=== PATIENT | female | born 1950 | race Caucasian/White ===

== ENCOUNTER 2017-03-25 19:46 | Inpatient (IN) | payer MEDICARE, MEDICAID ==
[~2017-03-25] VITALS: Ht 144.8 cm; Wt 59.0 kg
[~2017-03-25 19:46] MED LIST: HYDROCHLOROTH12.5 M2 ORAL; LISINOPRIL10 MG ORAL; XARELTO10 MG ORAL
[2017-03-25 21:32] LABS: APPEARANCE,URINE CLEAR; KETONES,URINE NEGATIVE (NEGATIVE); LEUKOCYTE ESTERASE ,URINE 1+ (NEGATIVE); NITRITE,URINE NEGATIVE (NEGATIVE); PH,URINE 7 (4.5-8.0); PROTEIN,URINE NEGATIVE (NEGATIVE); UROBILINOGEN,URINE NORMAL MG/DL (0.0-1.0)
[2017-03-25 21:35] LABS: BASOPHILS % (AUTO) 1.2 % (0.0-2.0); EOSINOPHILS % (AUTO) 2.7 % (0.0-3.0); LYMPHOCYTES % (AUTO) 25.8 % (20.0-45.0); MEAN CORPUSCULAR HEMOGLOBIN 29.1 PG (27.0-31.0); MEAN CORPUSCULAR HGB CONC 32.9 G/DL (32.0-36.0); MEAN CORPUSCULAR VOLUME 89 FL (80-99); MEAN PLATELET VOLUME 6.6 FL (6.5-10.1); MONOCYTES % (AUTO) 7.4 % (1.0-10.0); NEUTROPHILS % (AUTO) 62.9 % (45.0-75.0); PLATELET COUNT 251 K/UL (150-450); RED BLOOD COUNT 4.47 M/UL (4.20-5.40); RED CELL DISTRIBUTION WIDTH 11.5 % (11.6-14.8); WHITE BLOOD COUNT 9.7 K/UL (4.8-10.8)
[2017-03-25 21:56] LABS: INR 1.1 (0.9-1.1); PROTHROMBIN TIME 11.4 SEC (9.30-11.50)
[2017-03-25] MEDS ORDERED: Lidocaine 2% Visc 15ml soln ORAL ONE (22:00)
[2017-03-25] MEDS ORDERED: Morphine Sulfate 2mg/ml Inj IVP ONE (22:00)
[2017-03-25 22:08] LABS: AMORPHOUS SEDIMENT,UR FEW /LPF; BACTERIA,URINE FEW /HPF; RBC,URINE 0-2 /HPF (0 - 2); SQUAMOUS EPITHELIAL CELL,UR FEW /LPF (NONE/OCC)
[2017-03-25 22:09] LABS: ALANINE AMINOTRANSFERASE 17 U/L (12-78); ALBUMIN/GLOBULIN RATIO 1.1 (1.0-2.7); ANION GAP 9 mmol/L (5-15); ASPARTATE AMINO TRANSFERASE 16 U/L (15-37); CALCIUM 10.1 MG/DL (8.5-10.1); CARBON DIOXIDE 30 MMOL/L (21-32); CHLORIDE 107 MMOL/L (98-107); CREATININE 0.8 MG/DL (0.55-1.30); GLOMERULAR FILTRATION RATE > 60 mL/min (>60); POTASSIUM 3.4 MMOL/L (3.5-5.1); SODIUM 145 MMOL/L (136-145); THYROID STIMULATING HORMONE 1.881 uiU/mL (0.360-3.740); TOTAL PROTEIN 7.1 G/DL (6.4-8.2)
--- NOTE | 2017-03-25 22:27 | Emergency Room Report ---
History of Present Illness General Chief Complaint: Palpitations Source: Patient Present Illness HPI Patient states that a couple hours prior to arrival she lives with her mother and has 2 to diabetes and believes that she eat too much sugar. She states she did take her blood sugar at home and it was 120. However, she became lightheaded and developed chest pain and shortness of breath and also with palpitations. She states that this is unusual for her and she knows her body. She states she believes something is wrong. She denies recent illness. She denies fever chills. She denies abdominal pain. She has had some nausea. She has no other complaints. Allergies: Coded Allergies: CELECOXIB (Verified Allergy, Unknown, 10/23/08) IBUPROFEN (Verified Allergy, Unknown, 10/23/08) METOCLOPRAMIDE (Verified Allergy, Unknown, 10/23/08) PROCHLORPERAZINE (Verified Allergy, Unknown, 10/23/08) PSEUDOEPHEDRINE (Verified Allergy, Unknown, 10/23/08) Patient History Past Medical History: see triage record, DM, HTN, AK, CAD, CVA/TIA Social History: Denies: smoking, alcohol use, drug use Last Menstrual Period: n/a Reviewed Nursing Documentation: PMH: Agreed, PSxH: Agreed Nursing Documentation-PMH Past Medical History: No History, Except For Hx Cardiac Problems: Yes - CVA, pulmonary embolism Hx Hypertension: Yes Hx Diabetes: Yes - dm2 Review of Systems All Other Systems: negative except mentioned in HPI Physical Exam Vital Signs Date Time Temp Pulse Resp B/P (MAP) Pulse Ox O2 Delivery O2 Flow Rate FiO2 03/25/17 19:35 98.6 66 16 146/87 99 Room Air Sp02 EP Interpretation: reviewed, normal General Appearance: no apparent distress, alert, GCS 15, non-toxic Head: normocephalic, atraumatic Eyes: bilateral eye normal inspection, bilateral eye PERRL ENT: hearing grossly normal, normal pharynx, no angioedema, normal voice Neck: full range of motion, supple/symm/no masses Respiratory: chest non-tender, lungs clear, normal breath sounds, speaking full sentences Cardiovascular #1: regular rate, rhythm, no edema Gastrointestinal: normal bowel sounds, non tender, soft, non-distended, no guarding, no rebound Rectal: deferred Musculoskeletal: back normal, gait/station normal, normal range of motion, non- tender Neurologic: alert, oriented x3, responsive, motor strength/tone normal, sensory intact, speech normal Psychiatric: judgement/insight normal, memory normal, mood/affect normal, no suicidal/homicidal ideation Skin: normal color, no rash, warm/dry, well hydrated Medical Decision Making Diagnostic Impression: Primary Impression: Palpitations Additional Impression: Chest pain ER Course This patient presents with chest pain or shortness of breath. She does have a history of PE. She also has a history of CVA. She is high risk for acute coronary syndrome. Initial workup is unremarkable to include EKG, laboratory workup to include CBC, CMP and troponin. Chest x-ray is also negative. The patient is pending CTA at the time of this dictation. If the CT a is positive there will be an addendum to this dictation. Anticipate admission to rule out acute coronary syndrome. Laboratory Tests Test 03/25/17 21:00 White Blood Count 9.7 K/UL (4.8-10.8) Red Blood Count 4.47 M/UL (4.20-5.40) Hemoglobin 13.0 G/DL (12.0-16.0) Hematocrit 39.6 % (37.0-47.0) Mean Corpuscular Volume 89 FL (80-99) Mean Corpuscular Hemoglobin 29.1 PG (27.0-31.0) Mean Corpuscular Hemoglobin Concent 32.9 G/DL (32.0-36.0) Red Cell Distribution Width 11.5 % (11.6-14.8) L Platelet Count 251 K/UL (150-450) Mean Platelet Volume 6.6 FL (6.5-10.1) Neutrophils (%) (Auto) 62.9 % (45.0-75.0) Lymphocytes (%) (Auto) 25.8 % (20.0-45.0) Monocytes (%) (Auto) 7.4 % (1.0-10.0) Eosinophils (%) (Auto) 2.7 % (0.0-3.0) Basophils (%) (Auto) 1.2 % (0.0-2.0) Prothrombin Time 11.4 SEC (9.30-11.50) Prothrombin Time INR 1.1 (0.9-1.1) PTT 30 SEC (23-33) Urine Color Pale yellow Urine Appearance Clear Urine pH 7 (4.5-8.0) Urine Specific [place] 1.010 (1.005-1.035) Urine Protein Negative (NEGATIVE) Urine Glucose (UA) Negative (NEGATIVE) Urine Ketones Negative (NEGATIVE) Urine Occult Blood Negative (NEGATIVE) Urine Nitrite Negative (NEGATIVE) Urine Bilirubin Negative (NEGATIVE) Urine Urobilinogen Normal MG/DL (0.0-1.0) Urine Leukocyte Esterase 1+ (NEGATIVE) H Urine RBC 0-2 /HPF (0 - 2) Urine WBC 2-4 /HPF (0 - 2) Urine Squamous Epithelial Cells Few /LPF (NONE/OCC) Urine Amorphous Sediment Few /LPF (NONE) H Urine Bacteria Few /HPF (NONE) Sodium Level 145 MMOL/L (136-145) Potassium Level 3.4 MMOL/L (3.5-5.1) L Chloride Level 107 MMOL/L (98-107) Carbon Dioxide Level 30 MMOL/L (21-32) Anion Gap 9 mmol/L (5-15) Blood Urea Nitrogen 23 mg/dL (7-18) H Creatinine 0.8 MG/DL (0.55-1.30) Estimate Glomerular Filtration Rate > 60 mL/min (>60) Glucose Level 106 MG/DL (74-106) Calcium Level 10.1 MG/DL (8.5-10.1) Total Bilirubin 0.4 MG/DL (0.2-1.0) Aspartate Amino Transferase (AST) 16 U/L (15-37) Alanine Aminotransferase (ALT) 17 U/L (12-78) Alkaline Phosphatase 85 U/L (46-116) Total Creatine Kinase 46 U/L (26-308) Creatine Kinase MB 1.0 NG/ML (0.0-3.6) Creatine Kinase MB Relative Index 2.1 Troponin I 0.010 ng/mL (0.000-0.056) Total Protein 7.1 G/DL (6.4-8.2) Albumin 3.7 G/DL (3.4-5.0) Globulin 3.4 g/dL Albumin/Globulin Ratio 1.1 (1.0-2.7) Thyroid Stimulating Hormone (TSH) 1.881 uiU/mL (0.360-3.740) Free Thyroxine 1.21 NG/DL (0.10-1.46) Free Triiodothyronine Pending EKG Diagnostic Results Rate: normal Rhythm: NSR ST Segments: no acute changes Rhythm Strip Diag. Results EP Interpretation: yes Rate: 70's Rhythm: NSR, no PVC's, no ectopy Chest X-Ray Diagnostic Results Chest X-Ray Diagnostic Results : Chest X-Ray Ordered: Yes # of Views/Limited/Complete: 1 View Indication: Chest Pain EP Interpretation: Yes Interpretation: no consolidation, no effusion, no pneumothorax, no acute cardiopulmonary disease, other - Elevated R. hemidiaphragm Impression: No acute disease Electronically Signed by: Grisel CT/MRI/US Diagnostic Results CT/MRI/US Diagnostic Results : Imaging Test Ordered: CTA Chest Impression See official report. Last Vital Signs Date Time Temp Pulse Resp B/P (MAP) Pulse Ox O2 Delivery O2 Flow Rate FiO2 03/25/17 19:35 98.6 66 16 146/87 99 Room Air Status: improved Disposition: ADMITTED INPATIENT Condition: Stable DEION GUNN D.O. Mar 25, 2017 22:27
[2017-03-25] MEDS ORDERED: Morphine Sulfate 2mg/ml Inj IVP PRN (23:30)
[2017-03-25] MEDS ORDERED: Albuterol/Ipratropium 3ml neb HHN PRN (23:30)
[2017-03-25] MEDS ORDERED: Enalaprilat 2.5mg/2ml Inj IV PRN (23:30)
[2017-03-25] MEDS ORDERED: Nitroglycerin Subl 0.4mg tab SL PRN (23:30)
[2017-03-25] MEDS ORDERED: dilTIAZem HCl 25mg/5ml Inj IV PRN (23:30)
[2017-03-25] MEDS ORDERED: Miralax 17gm pkt ORAL PRN (23:30)
[2017-03-25 23:49] VITALS: BP 165/81
[2017-03-26] VITALS (7 sets, daily range): BP systolic 117–168; BP diastolic 71–80
[2017-03-26] MEDS ORDERED: LEVOTHYROXINE88 MCG ORAL (00:12)
[2017-03-26] MEDS ORDERED: LISINOPRIL40 MG ORAL (00:12)
[2017-03-26] MEDS ORDERED: TRAZODONE HCL50 MG ORAL (00:12)
[2017-03-26] MEDS ORDERED: CYMBALTA60 MG ORAL (00:12)
[2017-03-26] MEDS ORDERED: METFORMIN HCL500 M1 ORAL (00:12)
[2017-03-26] MEDS ORDERED: PROTONIX40 MG ORAL (00:12)
[2017-03-26] MEDS ORDERED: METOPROLOL SUC100 MG ORAL (00:12)
[2017-03-26] MEDS ORDERED: ZOFRAN ODT4 MG ORAL (00:12)
[2017-03-26] MEDS ORDERED: ATORVASTATIN CA40 MG ORAL (00:12)
--- NOTE | 2017-03-26 00:27 | Emergency Room Report ---
History of Present Illness General Chief Complaint: Palpitations Source: Patient Present Illness Allergies: Coded Allergies: CELECOXIB (Verified Allergy, Unknown, 10/23/08) IBUPROFEN (Verified Allergy, Unknown, 10/23/08) METOCLOPRAMIDE (Verified Allergy, Unknown, 10/23/08) PROCHLORPERAZINE (Verified Allergy, Unknown, 10/23/08) PSEUDOEPHEDRINE (Verified Allergy, Unknown, 10/23/08) Patient History Last Menstrual Period: n/a Nursing Documentation-[facility] Past Medical History: No History, Except For Hx Cardiac Problems: Yes - CVA, pulmonary embolism Hx Hypertension: Yes Hx Diabetes: Yes - dm2 Physical Exam Vital Signs Date Time Temp Pulse Resp B/P (MAP) Pulse Ox O2 Delivery O2 Flow Rate FiO2 03/25/17 19:35 98.6 66 16 146/87 99 Room Air Medical Decision Making Diagnostic Impression: Primary Impression: ACS (acute coronary syndrome) ER Course Please refer to initial note for the history exame and presentation Patient's CT chest was pending which is read by radiology as no acute disease Patient remains asymptomatic at this time given the history and presentation Patient was admitted for further care Labs Test 03/25/17 21:00 White Blood Count 9.7 K/UL (4.8-10.8) Red Blood Count 4.47 M/UL (4.20-5.40) Hemoglobin 13.0 G/DL (12.0-16.0) Hematocrit 39.6 % (37.0-47.0) Mean Corpuscular Volume 89 FL (80-99) Mean Corpuscular Hemoglobin 29.1 PG (27.0-31.0) Mean Corpuscular Hemoglobin Concent 32.9 G/DL (32.0-36.0) Red Cell Distribution Width 11.5 % (11.6-14.8) Platelet Count 251 K/UL (150-450) Mean Platelet Volume 6.6 FL (6.5-10.1) Neutrophils (%) (Auto) 62.9 % (45.0-75.0) Lymphocytes (%) (Auto) 25.8 % (20.0-45.0) Monocytes (%) (Auto) 7.4 % (1.0-10.0) Eosinophils (%) (Auto) 2.7 % (0.0-3.0) Basophils (%) (Auto) 1.2 % (0.0-2.0) Prothrombin Time 11.4 SEC (9.30-11.50) Prothromb Time International Ratio 1.1 (0.9-1.1) Activated Partial Thromboplast Time 30 SEC (23-33) Urine Color Pale yellow Urine Appearance Clear Urine pH 7 (4.5-8.0) Urine Specific [place] 1.010 (1.005-1.035) Urine Protein Negative (NEGATIVE) Urine Glucose (UA) Negative (NEGATIVE) Urine Ketones Negative (NEGATIVE) Urine Occult Blood Negative (NEGATIVE) Urine Nitrite Negative (NEGATIVE) Urine Bilirubin Negative (NEGATIVE) Urine Urobilinogen Normal MG/DL (0.0-1.0) Urine Leukocyte Esterase 1+ (NEGATIVE) Urine RBC 0-2 /HPF (0 - 2) Urine WBC 2-4 /HPF (0 - 2) Urine Squamous Epithelial Cells Few /LPF (NONE/OCC) Urine Amorphous Sediment Few /LPF (NONE) Urine Bacteria Few /HPF (NONE) Sodium Level 145 MMOL/L (136-145) Potassium Level 3.4 MMOL/L (3.5-5.1) Chloride Level 107 MMOL/L (98-107) Carbon Dioxide Level 30 MMOL/L (21-32) Anion Gap 9 mmol/L (5-15) Blood Urea Nitrogen 23 mg/dL (7-18) Creatinine 0.8 MG/DL (0.55-1.30) Estimat Glomerular Filtration Rate > 60 mL/min (>60) Glucose Level 106 MG/DL (74-106) Calcium Level 10.1 MG/DL (8.5-10.1) Total Bilirubin 0.4 MG/DL (0.2-1.0) Aspartate Amino Transf (AST/SGOT) 16 U/L (15-37) Alanine Aminotransferase (ALT/SGPT) 17 U/L (12-78) Alkaline Phosphatase 85 U/L (46-116) Total Creatine Kinase 46 U/L (26-308) Creatine Kinase MB 1.0 NG/ML (0.0-3.6) Creatine Kinase MB Relative Index 2.1 Troponin I 0.010 ng/mL (0.000-0.056) Total Protein 7.1 G/DL (6.4-8.2) Albumin 3.7 G/DL (3.4-5.0) Globulin 3.4 g/dL Albumin/Globulin Ratio 1.1 (1.0-2.7) Thyroid Stimulating Hormone (TSH) 1.881 uiU/mL (0.360-3.740) Free Thyroxine 1.21 NG/DL (0.10-1.46) Rhythm Strip Diag. Results EP Interpretation: yes Rate: 77 Rhythm: NSR, no PVC's, no ectopy CT/MRI/US Diagnostic Results CT/MRI/US Diagnostic Results : Impression CT a chest no acute disease Last Vital Signs Date Time Temp Pulse Resp B/P (MAP) Pulse Ox O2 Delivery O2 Flow Rate FiO2 03/25/17 23:49 98.6 64 12 165/81 98 Room Air Status: improved Disposition: ADMITTED INPATIENT Condition: Serious Referrals: NON PHYSICIAN (PCP) DEN PAIGE D.O. Mar 26, 2017 00:27
[2017-03-26 08:17] LABS: BASOPHILS % (AUTO) 1.3 % (0.0-2.0); EOSINOPHILS % (AUTO) 2.8 % (0.0-3.0); LYMPHOCYTES % (AUTO) 32.5 % (20.0-45.0); MEAN CORPUSCULAR VOLUME 88 FL (80-99); MONOCYTES % (AUTO) 8.6 % (1.0-10.0); NEUTROPHILS % (AUTO) 54.8 % (45.0-75.0); PLATELET COUNT 247 K/UL (150-450); RED BLOOD COUNT 4.26 M/UL (4.20-5.40); RED CELL DISTRIBUTION WIDTH 11.8 % (11.6-14.8)
[2017-03-26 08:28] LABS: PROTHROMBIN TIME 10.3 SEC (9.30-11.50)
[2017-03-26 08:51] LABS: CHOLESTEROL 89 MG/DL (< 200); CHOLESTEROL/HDL RATIO 2.5 (3.3-4.4); CRP QUANT < 0.4 mg/dL (0.00-0.90)
[2017-03-26] MEDS ORDERED: Heparin 5000 units/ml inj SUBQ SCH (09:00)
[2017-03-26] MEDS ORDERED: Lisinopril 20mg tab ORAL SCH (09:00)
[2017-03-26] MEDS: Xarelto 10mg tab ORAL SCH (09:30)
--- NOTE | 2017-03-26 10:47 | Diagnostic Imaging Report ---
Indication: Chest pain Technique: Continuous helical transaxial imaging of the chest was obtained from the thoracic inlet to the upper abdomen during rapid intravenous contrast administration. Arterial phase of enhancement obtained. Coronal 2-D reformats were also obtained and maximum intensity projection images in multiple planes. Study obtained in a Siemens sensation [address] Total Dose length Product (DLP): [address] Dose Index Volume (CTDIvol): 0.17, 4.6, 4.6, 26.39 mGy Comparison: None Findings: No obvious pulmonary embolus filling defect identified. Review motion artifact is present. Aorta shows no evidence of dissection or aneurysm. Some mural calcification noted within the aorta. Lungs are essentially clear. No consolidation identified. Suggestion of bilateral renal cysts partially imaged on this examination. Gallbladder grossly unremarkable in appearance. Right hemidiaphragm is elevated. Minimal atelectasis noted at the lung bases. Tiny nodes noted in the mediastinum nonspecific. There is narrowing of intervertebral discs and accompanying endplate osteophyte formation. Hypertrophied facet joints also demonstrated.. There is a 1.4 cm cystic focus in the uncinate process of the pancreas. This requires further evaluation preferably with MRI with and without gadolinium. Impression: No obvious pulmonary embolus. Slightly degraded image quality. Atherosclerotic disease. Incidental 1.4 cm cystic focus within the uncinate process of the pancreas. Possible IPMN. Followup gadolinium-enhanced MR is recommended. Minimal atelectasis at the lung base. Elevated right hemidiaphragm. Spondylosis. Partially imaged bilateral renal cysts. The CT scanner at [facility] is accredited by the [employer] and the scans are performed using dose optimization techniques as appropriate to a performed exam including Automatic Exposure control.
--- NOTE | 2017-03-26 11:17 | History and Physical ---
History of Present Illness General Date patient seen: Mar 26, 2017 Reason for Hospitalization: Palpitations Present Illness HPI 67 year old female with extensive PMHx, presented to ER with CC of lightheadedness and developed chest pain and shortness of breath and also with palpitations. She states that this is unusual for her and she knows her body. She states she believes something is wrong. She denies recent illness. She denies fever chills. She denies abdominal pain. She is admitted to telemetry for acute episode of palpitation and chest pain. Allergies: Coded Allergies: CELECOXIB (Verified Allergy, Unknown, 10/23/08) IBUPROFEN (Verified Allergy, Unknown, 10/23/08) METOCLOPRAMIDE (Verified Allergy, Unknown, 10/23/08) PROCHLORPERAZINE (Verified Allergy, Unknown, 10/23/08) PSEUDOEPHEDRINE (Verified Allergy, Unknown, 10/23/08) ONION (Verified Adverse Reaction, Mild, 03/26/17) intolerance Brambila Pepper (Verified Adverse Reaction, Unknown, 03/26/17) intolerance Coffee (Verified Adverse Reaction, Unknown, 03/26/17) intolerance ORANGE (Verified Adverse Reaction, Unknown, 03/26/17) intolerance TOMATO (Verified Adverse Reaction, Unknown, 03/26/17) intolerance Medication History Scheduled Atorvastatin Calcium* (Atorvastatin Calcium*), 40 MG ORAL BEDTIME, (Reported) Duloxetine Hcl* (Cymbalta*), 60 MG ORAL QHS, (Reported) Hydrochlorothiazide* (Hydrochlorothiazide*), 12.5 MG ORAL DAILY, (Reported) Levothyroxine Sodium* (Levothyroxine Sodium*), 88 MCG ORAL DAILY, (Reported) Lisinopril* (Lisinopril*), 40 MG ORAL DAILY, (Reported) Metformin Hcl* (Metformin Hcl*), 500 MG ORAL DAILY, (Reported) Metoprolol Succinate* (Metoprolol Succinate*), 100 MG ORAL BID, (Reported) Pantoprazole* (Protonix*), 40 MG ORAL DAILY, (Reported) Rivaroxaban (Xarelto*), 15 MG ORAL DAILY, (Reported) Trazodone Hcl* (Desyrel*), 50 MG ORAL BEDTIME, (Reported) Scheduled PRN Ondansetron Odt* (Zofran Odt*), 4 MG ORAL Q8H PRN for Nausea & Vomiting, ( Reported) Patient History Healthcare decision maker Resuscitation status Full Code Advanced Directive on File Past Medical/Surgical History Past Medical/Surgical History: (1) Diabetes mellitus Review of Systems All Other Systems: negative except mentioned in HPI Physical Exam General Appearance: WD/WN Lines, tubes and drains: peripheral HEENT: normocephalic, atraumatic Neck: non-tender, normal alignment Respiratory/Chest: chest wall non-tender, lungs clear Cardiovascular/Chest: normal peripheral pulses, normal rate Abdomen: normal bowel sounds, non tender Genitourinary/Rectal: normal genital exam Extremities: normal range of motion Last 24 Hour Vital Signs Date Time Temp Pulse Resp B/P (MAP) Pulse Ox O2 Delivery O2 Flow Rate FiO2 03/26/17 09:29 139/75 03/26/17 08:16 80 14 Room Air 21 03/26/17 08:12 96.6 59 18 139/75 97 Room Air 03/26/17 04:00 98.1 57 20 117/75 97 Room Air 03/26/17 04:00 57 03/26/17 00:51 68 03/26/17 00:45 96.4 68 20 145/71 98 Room Air 03/26/17 00:37 98.6 67 11 154/80 100 Room Air 03/26/17 00:26 98.6 67 11 154/80 100 Room Air 03/25/17 23:49 98.6 64 12 165/81 98 Room Air 03/25/17 19:35 98.6 66 16 146/87 99 Room Air Intake and Output 03/26/17 03/27/17 19:00 07:00 Intake Total 240 ml Balance 240 ml Intake Oral 240 ml # Voids 1 Laboratory Tests Test 03/25/17 21:00 03/26/17 07:25 White Blood Count 9.7 K/UL (4.8-10.8) 9.0 K/UL (4.8-10.8) Red Blood Count 4.47 M/UL (4.20-5.40) 4.26 M/UL (4.20-5.40) Hemoglobin 13.0 G/DL (12.0-16.0) 13.2 G/DL (12.0-16.0) Hematocrit 39.6 % (37.0-47.0) 37.7 % (37.0-47.0) Mean Corpuscular Volume 89 FL (80-99) 88 FL (80-99) Mean Corpuscular Hemoglobin 29.1 PG (27.0-31.0) 31.0 PG (27.0-31.0) Mean Corpuscular Hemoglobin Concent 32.9 G/DL (32.0-36.0) 35.0 G/DL (32.0-36.0) Red Cell Distribution Width 11.5 % (11.6-14.8) L 11.8 % (11.6-14.8) Platelet Count 251 K/UL (150-450) 247 K/UL (150-450) Mean Platelet Volume 6.6 FL (6.5-10.1) 7.0 FL (6.5-10.1) Neutrophils (%) (Auto) 62.9 % (45.0-75.0) 54.8 % (45.0-75.0) Lymphocytes (%) (Auto) 25.8 % (20.0-45.0) 32.5 % (20.0-45.0) Monocytes (%) (Auto) 7.4 % (1.0-10.0) 8.6 % (1.0-10.0) Eosinophils (%) (Auto) 2.7 % (0.0-3.0) 2.8 % (0.0-3.0) Basophils (%) (Auto) 1.2 % (0.0-2.0) 1.3 % (0.0-2.0) Prothrombin Time 11.4 SEC (9.30-11.50) 10.3 SEC (9.30-11.50) Prothromb Time International Ratio 1.1 (0.9-1.1) 1.0 (0.9-1.1) Activated Partial Thromboplast Time 30 SEC (23-33) 28 SEC (23-33) Urine Color Pale yellow Urine Appearance Clear Urine pH 7 (4.5-8.0) Urine Specific [place] 1.010 (1.005-1.035) Urine Protein Negative (NEGATIVE) Urine Glucose (UA) Negative (NEGATIVE) Urine Ketones Negative (NEGATIVE) Urine Occult Blood Negative (NEGATIVE) Urine Nitrite Negative (NEGATIVE) Urine Bilirubin Negative (NEGATIVE) Urine Urobilinogen Normal MG/DL (0.0-1.0) Urine Leukocyte Esterase 1+ (NEGATIVE) H Urine RBC 0-2 /HPF (0 - 2) Urine WBC 2-4 /HPF (0 - 2) Urine Squamous Epithelial Cells Few /LPF (NONE/OCC) Urine Amorphous Sediment Few /LPF (NONE) H Urine Bacteria Few /HPF (NONE) Sodium Level 145 MMOL/L (136-145) Potassium Level 3.4 MMOL/L (3.5-5.1) L Chloride Level 107 MMOL/L (98-107) Carbon Dioxide Level 30 MMOL/L (21-32) Anion Gap 9 mmol/L (5-15) Blood Urea Nitrogen 23 mg/dL (7-18) H Creatinine 0.8 MG/DL (0.55-1.30) Estimat Glomerular Filtration Rate > 60 mL/min (>60) Glucose Level 106 MG/DL (74-106) Calcium Level 10.1 MG/DL (8.5-10.1) Total Bilirubin 0.4 MG/DL (0.2-1.0) Aspartate Amino Transf (AST/SGOT) 16 U/L (15-37) Alanine Aminotransferase (ALT/SGPT) 17 U/L (12-78) Alkaline Phosphatase 85 U/L (46-116) Total Creatine Kinase 46 U/L (26-308) Creatine Kinase MB 1.0 NG/ML (0.0-3.6) Creatine Kinase MB Relative Index 2.1 Troponin I 0.010 ng/mL (0.000-0.056) 0.000 ng/mL (0.000-0.056) Total Protein 7.1 G/DL (6.4-8.2) Albumin 3.7 G/DL (3.4-5.0) Globulin 3.4 g/dL Albumin/Globulin Ratio 1.1 (1.0-2.7) Thyroid Stimulating Hormone (TSH) 1.881 uiU/mL (0.360-3.740) 4.950 uiU/mL (0.360-3.740) Free Thyroxine 1.21 NG/DL (0.10-1.46) Free Triiodothyronine Pending C-Reactive Protein, Quantitative < 0.4 mg/dL (0.00-0.90) Triglycerides Level 54 MG/DL (0-200) Cholesterol Level 89 MG/DL (< 200) LDL Cholesterol 53 mg/dL (<100) HDL Cholesterol 36 MG/DL (40-60) L Cholesterol/HDL Ratio 2.5 (3.3-4.4) L Height (Feet): 4 Height (Inches): 9.00 Weight (Pounds): 130 Medications Current Medications Medications (Trade) Dose Ordered Sig/Alisha Route PRN Reason Start Time Stop Time Status Last Admin Dose Admin Acetaminophen (Tylenol) 650 mg Q4H PRN ORAL FEVER 03/25/17 23:30 04/24/17 23:29 Albuterol/ Ipratropium (DuoNeb 0.5-3(2.5)mg/3ml) 3 ml EVERY 4 HOURS PRN HHN Shortness of Breath 03/25/17 23:30 03/30/17 23:29 Diltiazem HCl (Cardizem) 10 mg EVERY HOUR PRN IV heart rate more than 120, 03/25/17 23:30 04/24/17 23:29 Enalaprilat (Vasotec) 2.5 mg EVERY 6 HOURS PRN IV sbp more than 160 03/25/17 23:30 04/24/17 23:29 Lisinopril (Prinivil) 10 mg DAILY ORAL 03/26/17 09:00 04/25/17 08:59 03/26/17 09:29 Morphine Sulfate (Morphine Sulfate) 2 mg EVERY 4 HOURS PRN IVP severe Pain (Pain Scale 7-10) 03/25/17 23:30 04/01/17 23:29 03/26/17 04:55 Nitroglycerin (Ntg) 0.4 mg Q5MIN PRN SL Prn Chest Pain 03/25/17 23:30 04/24/17 23:29 Ondansetron HCl (Zofran) 4 mg Q6H PRN IVP Nausea & Vomiting 03/25/17 23:30 04/24/17 23:29 03/26/17 03:50 Polyethylene Glycol (Miralax) 17 gm DAILYPRN PRN ORAL Constipation 03/25/17 23:30 04/24/17 23:29 Rivaroxaban (Xarelto) 10 mg DAILY ORAL 03/26/17 09:00 04/25/17 08:59 03/26/17 09:30 Temazepam (Restoril) 15 mg HSPRN PRN ORAL Insomnia 03/25/17 23:30 04/01/17 23:29 Assessment/Plan Problem List: (1) Palpitations ICD Codes: R00.2 - Palpitations SNOMED: 32104061, 991511809 (2) Diabetes mellitus ICD Codes: E11.9 - Type 2 diabetes mellitus without complications SNOMED: 17259885 (3) Chest pain ICD Codes: R07.9 - Chest pain, unspecified SNOMED: 36930134, 837954895 (4) ACS (acute coronary syndrome) ICD Codes: I24.9 - Acute ischemic heart disease, unspecified SNOMED: 533853936 Assessment/Plan telemetry monitoring serial ekg, troponin neuro and cardiology to see. RADAMES GOMEZ Mar 26, 2017 11:17
--- NOTE | 2017-03-26 11:59 | Neurology Progress Note ---
Objective Physical Exam Last Vital Signs Date Time Temp Pulse Resp B/P (MAP) Pulse Ox O2 Delivery O2 Flow Rate FiO2 03/26/17 11:50 97.1 61 18 168/74 99 Room Air 03/26/17 08:16 21 Laboratory Tests Test 03/25/17 21:00 03/26/17 07:25 White Blood Count 9.7 K/UL (4.8-10.8) 9.0 K/UL (4.8-10.8) Red Blood Count 4.47 M/UL (4.20-5.40) 4.26 M/UL (4.20-5.40) Hemoglobin 13.0 G/DL (12.0-16.0) 13.2 G/DL (12.0-16.0) Hematocrit 39.6 % (37.0-47.0) 37.7 % (37.0-47.0) Mean Corpuscular Volume 89 FL (80-99) 88 FL (80-99) Mean Corpuscular Hemoglobin 29.1 PG (27.0-31.0) 31.0 PG (27.0-31.0) Mean Corpuscular Hemoglobin Concent 32.9 G/DL (32.0-36.0) 35.0 G/DL (32.0-36.0) Red Cell Distribution Width 11.5 % (11.6-14.8) L 11.8 % (11.6-14.8) Platelet Count 251 K/UL (150-450) 247 K/UL (150-450) Mean Platelet Volume 6.6 FL (6.5-10.1) 7.0 FL (6.5-10.1) Neutrophils (%) (Auto) 62.9 % (45.0-75.0) 54.8 % (45.0-75.0) Lymphocytes (%) (Auto) 25.8 % (20.0-45.0) 32.5 % (20.0-45.0) Monocytes (%) (Auto) 7.4 % (1.0-10.0) 8.6 % (1.0-10.0) Eosinophils (%) (Auto) 2.7 % (0.0-3.0) 2.8 % (0.0-3.0) Basophils (%) (Auto) 1.2 % (0.0-2.0) 1.3 % (0.0-2.0) Prothrombin Time 11.4 SEC (9.30-11.50) 10.3 SEC (9.30-11.50) Prothromb Time International Ratio 1.1 (0.9-1.1) 1.0 (0.9-1.1) Activated Partial Thromboplast Time 30 SEC (23-33) 28 SEC (23-33) Urine Color Pale yellow Urine Appearance Clear Urine pH 7 (4.5-8.0) Urine Specific [place] 1.010 (1.005-1.035) Urine Protein Negative (NEGATIVE) Urine Glucose (UA) Negative (NEGATIVE) Urine Ketones Negative (NEGATIVE) Urine Occult Blood Negative (NEGATIVE) Urine Nitrite Negative (NEGATIVE) Urine Bilirubin Negative (NEGATIVE) Urine Urobilinogen Normal MG/DL (0.0-1.0) Urine Leukocyte Esterase 1+ (NEGATIVE) H Urine RBC 0-2 /HPF (0 - 2) Urine WBC 2-4 /HPF (0 - 2) Urine Squamous Epithelial Cells Few /LPF (NONE/OCC) Urine Amorphous Sediment Few /LPF (NONE) H Urine Bacteria Few /HPF (NONE) Sodium Level 145 MMOL/L (136-145) Potassium Level 3.4 MMOL/L (3.5-5.1) L Chloride Level 107 MMOL/L (98-107) Carbon Dioxide Level 30 MMOL/L (21-32) Anion Gap 9 mmol/L (5-15) Blood Urea Nitrogen 23 mg/dL (7-18) H Creatinine 0.8 MG/DL (0.55-1.30) Estimat Glomerular Filtration Rate > 60 mL/min (>60) Glucose Level 106 MG/DL (74-106) Calcium Level 10.1 MG/DL (8.5-10.1) Total Bilirubin 0.4 MG/DL (0.2-1.0) Aspartate Amino Transf (AST/SGOT) 16 U/L (15-37) Alanine Aminotransferase (ALT/SGPT) 17 U/L (12-78) Alkaline Phosphatase 85 U/L (46-116) Total Creatine Kinase 46 U/L (26-308) Creatine Kinase MB 1.0 NG/ML (0.0-3.6) Creatine Kinase MB Relative Index 2.1 Troponin I 0.010 ng/mL (0.000-0.056) 0.000 ng/mL (0.000-0.056) Total Protein 7.1 G/DL (6.4-8.2) Albumin 3.7 G/DL (3.4-5.0) Globulin 3.4 g/dL Albumin/Globulin Ratio 1.1 (1.0-2.7) Thyroid Stimulating Hormone (TSH) 1.881 uiU/mL (0.360-3.740) 4.950 uiU/mL (0.360-3.740) Free Thyroxine 1.21 NG/DL (0.10-1.46) Free Triiodothyronine Pending C-Reactive Protein, Quantitative < 0.4 mg/dL (0.00-0.90) Triglycerides Level 54 MG/DL (0-200) Cholesterol Level 89 MG/DL (< 200) LDL Cholesterol 53 mg/dL (<100) HDL Cholesterol 36 MG/DL (40-60) L Cholesterol/HDL Ratio 2.5 (3.3-4.4) L Impression/Recommendations Recommendations # [id number] SHANTE QUEZADA Mar 26, 2017 11:59
--- NOTE | 2017-03-26 12:55 | Diagnostic Imaging Report ---
Indication: Dyspnea Comparison: 10/22/2008 A single view chest radiograph was obtained. Findings: No definite infiltrate or pulmonary vascular congestion identified. The heart is normal. Right hemidiaphragm remains elevated. The aorta is mildly enlarged consistent with atherosclerotic vascular disease. The bones are osteopenic. Impression: No acute disease
--- NOTE | 2017-03-26 15:07 | Cardiology Progress Note ---
Assessment/Plan Assessment/Plan vertigo cp[ dm htn hs fo PE ? hypercoag state on anticoag with xarelto trop neg despite peristent cp ekg neg elena have echo neuro eval may need stres testing once vertigo adn dizzines sx resolved Objective Last 24 Hour Vital Signs Date Time Temp Pulse Resp B/P (MAP) Pulse Ox O2 Delivery O2 Flow Rate FiO2 03/26/17 11:50 97.1 61 18 168/74 99 Room Air 03/26/17 09:29 139/75 03/26/17 08:16 80 14 Room Air 21 03/26/17 08:12 96.6 59 18 139/75 97 Room Air 03/26/17 04:00 98.1 57 20 117/75 97 Room Air 03/26/17 04:00 57 03/26/17 00:51 68 03/26/17 00:45 96.4 68 20 145/71 98 Room Air 03/26/17 00:37 98.6 67 11 154/80 100 Room Air 03/26/17 00:26 98.6 67 11 154/80 100 Room Air 03/25/17 23:49 98.6 64 12 165/81 98 Room Air 03/25/17 19:35 98.6 66 16 146/87 99 Room Air Intake and Output 03/26/17 03/27/17 19:00 07:00 Intake Total 480 ml Balance 480 ml Intake Oral 480 ml # Voids 2 Laboratory Tests Test 03/25/17 21:00 03/26/17 07:25 White Blood Count 9.7 K/UL (4.8-10.8) 9.0 K/UL (4.8-10.8) Red Blood Count 4.47 M/UL (4.20-5.40) 4.26 M/UL (4.20-5.40) Hemoglobin 13.0 G/DL (12.0-16.0) 13.2 G/DL (12.0-16.0) Hematocrit 39.6 % (37.0-47.0) 37.7 % (37.0-47.0) Mean Corpuscular Volume 89 FL (80-99) 88 FL (80-99) Mean Corpuscular Hemoglobin 29.1 PG (27.0-31.0) 31.0 PG (27.0-31.0) Mean Corpuscular Hemoglobin Concent 32.9 G/DL (32.0-36.0) 35.0 G/DL (32.0-36.0) Red Cell Distribution Width 11.5 % (11.6-14.8) L 11.8 % (11.6-14.8) Platelet Count 251 K/UL (150-450) 247 K/UL (150-450) Mean Platelet Volume 6.6 FL (6.5-10.1) 7.0 FL (6.5-10.1) Neutrophils (%) (Auto) 62.9 % (45.0-75.0) 54.8 % (45.0-75.0) Lymphocytes (%) (Auto) 25.8 % (20.0-45.0) 32.5 % (20.0-45.0) Monocytes (%) (Auto) 7.4 % (1.0-10.0) 8.6 % (1.0-10.0) Eosinophils (%) (Auto) 2.7 % (0.0-3.0) 2.8 % (0.0-3.0) Basophils (%) (Auto) 1.2 % (0.0-2.0) 1.3 % (0.0-2.0) Prothrombin Time 11.4 SEC (9.30-11.50) 10.3 SEC (9.30-11.50) Prothromb Time International Ratio 1.1 (0.9-1.1) 1.0 (0.9-1.1) Activated Partial Thromboplast Time 30 SEC (23-33) 28 SEC (23-33) Urine Color Pale yellow Urine Appearance Clear Urine pH 7 (4.5-8.0) Urine Specific [place] 1.010 (1.005-1.035) Urine Protein Negative (NEGATIVE) Urine Glucose (UA) Negative (NEGATIVE) Urine Ketones Negative (NEGATIVE) Urine Occult Blood Negative (NEGATIVE) Urine Nitrite Negative (NEGATIVE) Urine Bilirubin Negative (NEGATIVE) Urine Urobilinogen Normal MG/DL (0.0-1.0) Urine Leukocyte Esterase 1+ (NEGATIVE) H Urine RBC 0-2 /HPF (0 - 2) Urine WBC 2-4 /HPF (0 - 2) Urine Squamous Epithelial Cells Few /LPF (NONE/OCC) Urine Amorphous Sediment Few /LPF (NONE) H Urine Bacteria Few /HPF (NONE) Sodium Level 145 MMOL/L (136-145) Potassium Level 3.4 MMOL/L (3.5-5.1) L Chloride Level 107 MMOL/L (98-107) Carbon Dioxide Level 30 MMOL/L (21-32) Anion Gap 9 mmol/L (5-15) Blood Urea Nitrogen 23 mg/dL (7-18) H Creatinine 0.8 MG/DL (0.55-1.30) Estimat Glomerular Filtration Rate > 60 mL/min (>60) Glucose Level 106 MG/DL (74-106) Calcium Level 10.1 MG/DL (8.5-10.1) Total Bilirubin 0.4 MG/DL (0.2-1.0) Aspartate Amino Transf (AST/SGOT) 16 U/L (15-37) Alanine Aminotransferase (ALT/SGPT) 17 U/L (12-78) Alkaline Phosphatase 85 U/L (46-116) Total Creatine Kinase 46 U/L (26-308) Creatine Kinase MB 1.0 NG/ML (0.0-3.6) Creatine Kinase MB Relative Index 2.1 Troponin I 0.010 ng/mL (0.000-0.056) 0.000 ng/mL (0.000-0.056) Total Protein 7.1 G/DL (6.4-8.2) Albumin 3.7 G/DL (3.4-5.0) Globulin 3.4 g/dL Albumin/Globulin Ratio 1.1 (1.0-2.7) Thyroid Stimulating Hormone (TSH) 1.881 uiU/mL (0.360-3.740) 4.950 uiU/mL (0.360-3.740) Free Thyroxine 1.21 NG/DL (0.10-1.46) Free Triiodothyronine Pending C-Reactive Protein, Quantitative < 0.4 mg/dL (0.00-0.90) Triglycerides Level 54 MG/DL (0-200) Cholesterol Level 89 MG/DL (< 200) LDL Cholesterol 53 mg/dL (<100) HDL Cholesterol 36 MG/DL (40-60) L Cholesterol/HDL Ratio 2.5 (3.3-4.4) MARCUS REDDY Mar 26, 2017 15:07
[2017-03-26] MEDS: NovoLOG Insulin Flexpen SUBQ SCH ×2 (17:32→21:02)
--- NOTE | 2017-03-26 18:15 | Consultation ---
DATE OF CONSULTATION: 03/26/2017 NEUROLOGICAL CONSULTATION CONSULTING PHYSICIAN: Alexis Paris M.D. REQUESTING PHYSICIAN: Estela Tinoco M.D. HISTORY OF PRESENT ILLNESS: The patient is a 67-year-old female, seen in neurological consultation to evaluate the new onset of dizziness. According to the patient, she was doing fairly well yesterday, had her dinner with her mother, when after having heavy meals, she started to feel very dizzy. She developed palpitation and nausea. She developed chest pain. She has checked her blood sugar, which was 120. The patient became quite concerned with the symptomatology and sent in to emergency room. Her admission vital signs were stable. Blood pressure 146/87. Her initial diagnostic studies including EKG, normal sinus rhythm and no premature ventricular contractions. Her laboratory work included normal CBC study and normal coagulation panel. Chemistry panel with elevated TSH of 4.950, BUN of 23, and potassium 3.4, otherwise normal study. Normal troponins. Her urinalysis was unremarkable. Coagulation panel was normal. The patient had a chest and thorax CT angiogram with no obvious pulmonary emboli, atherosclerotic disease, elevated right hemidiaphragm, spondylosis, and bilateral renal cysts. Since admission till present, she felt improvement, but at this moment, she still continued to have slight lightheadedness. There is palpitation, nausea, chest pain, and mild diffuse headaches. PAST MEDICAL HISTORY: The patient indicates she has diabetes type 2. She had several, at least portions four strokes with gradual resolution of symptomatology, history of PE, history of thyroid cancer, and pancreatic cysts. 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 MEDICATIONS: Treatment prior to admission included atorvastatin, Cymbalta, hydrochlorothiazide, levothyroxine, lisinopril, metformin, metoprolol, ondansetron, pantoprazole, Xarelto, and trazodone at bedtime. ALLERGIES: [place] pepper, celecoxib, coffee, ibuprofen, metoclopramide, onion, oranges, prochlorperazine, ephedrine, and tomato. SOCIAL HISTORY: The patient lives with her elderly mother. They, "take care of each other." No alcohol. No drug abuse. Nonsmoker. FAMILY HISTORY: Noncontributory. REVIEW OF SYSTEMS: She has slight lightheadedness, palpitation, mild headaches, some chest pain, and nausea. Currently, no shortness of breath. No abdominal pain or discomfort. No urine or bowel incontinence. PHYSICAL EXAMINATION: GENERAL: A well-developed and well-nourished female, not in acute distress. VITAL SIGNS: Now stable. She is afebrile. Heart rate of 59. HEENT: Normocephalic. No evidence of injuries. Eyes, ears, and throat are clear. NECK: Supple. MUSCULOSKELETAL EXAMINATION: Unremarkable. There is no deformities. Peripheral pulses 1+ and symmetric. MENTAL STATUS: Alert and oriented x3 with no evidence of aphasia or apraxia. Cognitive function normal. CRANIAL NERVE II: Pupils both responding to light and accommodation. Extraocular movements intact. No nystagmus. CRANIAL NERVE V: Normal corneal responses. CRANIAL NERVE VII: No facial asymmetry. CRANIAL NERVE VIII: Normal hearing. CRANIAL NERVES IX THROUGH XII: Within normal limits. MOTOR EXAMINATION: Normal muscle tone. Strength 5/5 in all extremities. No involuntary movement. Deep tendon reflexes 1+ and symmetric with downgoing toes on both sides. SENSORY EXAM: Normal to pinprick. GAIT: Slow, but stable. IMPRESSION: 1. Acute onset of positional dizziness accompanied by palpitation, chest pain, and nausea. This may represent a presyncopal episode with episodes of cerebral hypoperfusion. 2. Insulin-dependent diabetes mellitus. 3. History of multiple lacunar strokes. 4. Hyperlipidemia. 5. History of hypercoagulable state, now on anticoagulation. RECOMMENDATIONS: Continue with current treatment including aspirin, Xarelto, and statins. The patient to have a clearance by Cardiology regarding chest pain and palpitation. Neurologically stable. Thank you for allowing me to see this interesting patient in neurological consultation. Alexis Paris M.D. DR: ELVIS JOB#: [id number] CC:
--- NOTE | 2017-03-26 20:51 | Cardiology Report ---
APPROVED REPORT EXAM: Two-dimensional and M-mode echocardiogram with Doppler and color Doppler. INDICATION Left ventricular function M-Mode DIMENSIONS IVSd0.9 (0.7-1.1cm)Left Atrium (MM)3.8 (1.6-4.0cm) LVDd4.1 (3.5-5.6cm)Aortic Root2.7 (2.0-3.7cm) PWd1.1 (0.7-1.1cm)Aortic Cusp Exc.1.9 (1.5-2.0cm) LVDs1.9 (2.5-4.0cm) PWs1.8 cm Normal left ventricular chamber size, systolic function and wall motion. Left ventricular ejection fraction estimated to be 65-70%. No evidence of left ventricular hypertrophy. No evidence of pericardial or pleural effusion. All other cardiac chamber sizes are within normal limits. Focal aortic valve sclerosis with adequate cusp excursion. Normal mitral valve leaflets with normal excursion. Normal mitral annulus and aortic root. Pulmonic valve is well visualized. Normal tricuspid valve structure. IVC is normal in size and collapsible with respiration. A color flow and spectral Doppler study was performed and revealed: No aortic regurgitation. No mitral regurgitation. Mitral diastolic velocities suggest reduced left ventricular relaxation c/w diastolic dysfunction grade 1. No tricuspid regurgitation.
[2017-03-26] MEDS ORDERED: DULoxetine 30mg cap ORAL SCH (21:00)
[2017-03-26] MEDS ORDERED: TraZODone 50mg tab ORAL SCH (21:00)
[2017-03-27] VITALS: BP 135/68
[2017-03-27 04:00] VITALS: BP 134/71
[2017-03-27] MEDS: NovoLOG Insulin Flexpen SUBQ SCH ×2 (06:30→11:30)
--- NOTE | 2017-03-27 07:29 | Cardiology Progress Note ---
Assessment/Plan Assessment/Plan vertigo cp atypical persistent with neg cardiac enzyme dm htn hs fo PE ? hs of hypercoag state on anticoag with xarelto all trop neg tele reviewed neg d/w neuor stress today with perfusion if neg ok to dc home with fu with hmo Subjective Cardiovascular: Denies: chest pain, lightheadedness, palpitations Respiratory: Denies: shortness of breath Gastrointestinal/Abdominal: Denies: abdominal pain Genitourinary: Denies: burning Objective Last 24 Hour Vital Signs Date Time Temp Pulse Resp B/P (MAP) Pulse Ox O2 Delivery O2 Flow Rate FiO2 03/27/17 04:00 60 03/27/17 04:00 97.7 61 20 134/71 95 Room Air 03/27/17 01:12 0 03/27/17 00:00 98.1 58 20 135/68 98 Room Air 03/27/17 00:00 62 03/26/17 21:00 73 140/77 03/26/17 20:00 98.1 60 20 140/75 97 Room Air 03/26/17 20:00 86 03/26/17 19:39 102 16 Room Air 03/26/17 16:00 72 03/26/17 16:00 62 03/26/17 15:55 60 03/26/17 15:50 86 03/26/17 15:35 98.3 71 18 138/76 99 Room Air 03/26/17 12:00 58 03/26/17 11:50 97.1 61 18 168/74 99 Room Air 03/26/17 09:29 139/75 03/26/17 08:16 80 14 Room Air 21 03/26/17 08:12 96.6 59 18 139/75 97 Room Air 03/26/17 08:00 63 General Appearance: no apparent distress Cardiovascular: normal rate Respiratory/Chest: lungs clear, normal breath sounds Abdomen: normal bowel sounds, non tender, soft Extremities: no swelling MARCUS STEPHENS Mar 27, 2017 07:29
[2017-03-27 08:00] VITALS: BP 151/86
--- NOTE | 2017-03-27 08:31 | Consultation ---
DATE OF CONSULTATION: 03/26/2017 CARDIOLOGY CONSULTATION CONSULTING PHYSICIAN: Elvis Garcia M.D. REFERRING PHYSICIAN: Estela Tinoco M.D. ATTENDING PHYSICIAN: Estela Tinoco M.D REASON FOR REFERRAL: Chest pain and vertigo. HISTORY OF PRESENT ILLNESS: This is a 67-year-old female, who has history of several medical problems. The patient was apparently eating food with her mother at her birthday, suddenly developed dizziness, nausea, palpitations, and chest pain and promptly called the paramedics. There was no syncope or near syncope. The chest pain is described as a pressure sensation across the chest that started yesterday and is still ongoing. The dizziness did not leave her to pass out, but she was very unbalanced. No blurred vision or double vision. No paralysis or numbness or weakness in any extremities. There is no PND. No orthopnea. She did have the palpitations. Ordinarily, when she sits up from her bed, which is on the floor, she sits and then after a few seconds she stands up rapidly. PAST MEDICAL HISTORY: Positive for history of diabetes and high blood pressure and possibly high cholesterol. No heart attack. She has had thyroid cancer, status post resection. She has had 4 strokes related to hypercoagulable state. No hepatitis or tuberculosis. No asthma, emphysema, or ulcers. No kidney problems, liver problems, thyroid problems, except for the thyroid cancer, anemia, or arthritis. She has had pulmonary embolism previously and denies any other medical problems. The patient also has irritable bowel syndrome. ALLERGIES: She is allergic to multiple medications including ibuprofen, Reglan, Compazine, pseudoephedrine, and Celexa. SOCIAL HISTORY: She does not smoke or drink alcoholic beverages. REVIEW OF SYSTEMS: GASTROINTESTINAL: She has had nausea. She has had occasional diarrhea. Occasional vomiting. GENITOURINARY: She denies. PULMONARY: She denies. CONSTITUTIONAL: She has some mild sweating at night. NEUROLOGIC: Negative. PHYSICAL EXAMINATION: GENERAL: Shows an elderly female, in no respiratory distress. HEENT: Unremarkable. NECK: Supple. No jugular venous distention. No abdominojugular reflux noted. LUNGS: Clear to auscultation and percussion. CARDIAC: S1 is normal. S2 is normal. Regular rate and rhythm. No heaves, thrills, gallops, or rubs noted. ABDOMEN: Soft and obese. Positive bowel sounds. Nontender. EXTREMITIES: There is no clubbing, cyanosis, or edema. NEUROLOGICAL: She is awake, alert, responsive, in no apparent respiratory distress. LABORATORY AND DIAGNOSTIC DATA: White count 9, hemoglobin 13.2, and platelet count 247,000. Two sets of cardiac enzymes are both negative. Total cholesterol is 89 with HDL of 36 and LDL of 53. TSH of 4.95 02:39 and free T4 of 1.21. C-reactive protein is less than 0.4. Sodium is 145, potassium 3.4, chloride 107, bicarbonate 30, BUN 23, creatinine 0.8, and a glucose of 106. Calcium is 10.1. AST and ALT are within normal limits. Albumin is 7.1. TSH of 1.81 . INR is 1.0 and a PTT of 28. She had a chest x-ray performed yesterday that shows no acute disease. She had a CT scan of the chest that showed no obvious pulmonary embolism, slightly degraded images, 1.5 cm cystic focus process at the pancreas, minimal atelectasis, elevated right hemidiaphragm, spondylosis, and partially imaged bilateral renal cysts. Electrocardiogram is normal sinus rhythm. No ST or T-wave abnormalities. ASSESSMENT: 1. Vertigo. 2. Diabetes mellitus. 3. Hypertension history. 4. Hyperlipidemia history. 5. Chest pains, atypical. 6. History of pulmonary embolism. 7. History of some kind of hypercoagulable state, on Xarelto. PLAN: Dr. Tinoco, this patient was seen in cardiac consultation. The patient has some atypical pain in the chest that is persistently present since yesterday and yet normal cardiac enzymes and normal electrocardiogram. Echocardiogram will be ordered for evaluation of systolic function. There was no evidence of pulmonary embolism and her symptoms are really not in line with pulmonary embolism. The dizziness that she describes are consistent with vertigo. The patient has been seen by Dr. Paris in neurology consultation and await the full evaluation as he dictated the report. An echocardiogram will be ordered for evaluation of systolic function. Fasting lipid profiles appeared to be very well controlled and further recommendations may be necessary in terms of stress testing because of her symptoms of chest pain and multiple risk factors, however, that needs to be considered once the patient's symptoms of vertigo is resolved and depending on the results of the echocardiogram for wall motion. Elvis Garcia M.D. DR: AGUILAR JOB#: [id number] CC:
[2017-03-27] MEDS ORDERED: hydroCHLOROthiazide 12.5mg TAB ORAL SCH (09:00)
[2017-03-27] MEDS ORDERED: Lisinopril 20mg tab ORAL SCH (09:00)
[2017-03-27] MEDS: Xarelto 10mg tab ORAL SCH (10:14)
[2017-03-27 12:00] VITALS: BP 142/74
[2017-03-27] MEDS ORDERED: Adenosine Inj IVP ONE (14:00)
--- NOTE | 2017-03-27 15:26 | Cardiology Report ---
APPROVED REPORT EKG Measurement Heart [id number] OR [id number] Normal sinus rhythm Inferior infarct, age undetermined Possible Anterior infarct, age undetermined Abnormal ECG
--- NOTE | 2017-03-27 15:49 | Cardiology Report ---
APPROVED REPORT EKG Measurement Heart [id number] OR [id number] Normal sinus rhythm Cannot rule out Anterior infarct, age undetermined Abnormal ECG
[2017-03-27 16:00] VITALS: BP 131/83
--- NOTE | 2017-03-27 16:57 | Diagnostic Imaging Report ---
Indications: Chest pain Technique: Single day single isotope protocol utilized. Initially, resting images obtained using IV administration 9.8 millicuries 99M technetium Myoview. Subsequently, patient underwent adenosine stress testing. See cardiology report for details. During adenosine infusion, IV administration 32.4 mCi 99 M technetium Myoview. SPECT and planar images obtained. SPECT images gated to 8 phases of the cardiac cycle were also obtained, and reformatted into cine images for evaluation of ejection fraction. Comparison: None Findings: Per cardiology report, patient experienced shortness of breath and chest pain. Per cardiology report, resting EKG demonstrates normal sinus rhythm with poor R wave progression in V1 and V4. No significant ST-T wave changes noted during infusion. Imaging demonstrates normal post stress perfusion, no fixed or reversible perfusion defects. Normal cardiac chamber size.. Calculated post stress ejection fraction 92%. No significant wall motion abnormality Impression: Ischemic clinical response to pharmacologic stress, per cardiology report Nonischemic electrocardiographic response to pharmacologic stress, per cardiology report No imaging findings to suggest ischemia, at level of stress achieved. Calculated post stress ejection fraction greater than 70%
--- NOTE | 2017-03-28 16:42 | Discharge Summary ---
Discharge Summary Hospital Course Date of Admission Mar 25, 2017 at 23:15 Date of Discharge Mar 27, 2017 at 18:00 Admitting Diagnosis CHEST PAIN/VERTIGO HPI Annette Tejada is a 67 year old female who was admitted on Mar 25, 2017 at 23:15 for Chest Pain/Vertigo Hospital Course [id number] Discharge Discharge Disposition Patient was discharged to Home (01) Discharge Diagnoses: Indy Yun NP Mar 28, 2017 16:42
--- NOTE | 2017-03-28 23:47 | Discharge Summary 2 SIG ---
DATE OF ADMISSION: 03/25/2017 DATE OF DISCHARGE: 03/27/2017 CONSULTANTS: 1. Elvis Garcia M.D. 2. Alexis Paris M.D. BRIEF HOSPITAL COURSE: The patient is a 67-year-old female with extensive medical history including diabetes, high blood pressure, and possibly high cholesterol. She has a history of thyroid CA status post resection and had a prior stroke x4 related to hypercoagulable state. She had history of pulmonary embolism and irritable bowel syndrome. She apparently was eating and suddenly developed dizziness, nausea, palpitation, and chest pain. Paramedics were called in. There was no syncope or near syncope. Chest pain was described to be pressure sensation across the chest. On evaluation at ED, initial cardiac enzyme was negative. Chest x-ray showed no acute disease. EKG was in normal sinus rhythm. CTA of the chest showed no obvious pulmonary emboli with an incidental finding of a 1.4 cm in the uncinate process of the pancreas. She underwent neurologic and cardiac evaluation. Chemistry panel showed elevated TSH. Coagulation panel was normal. Acute onset of positional dizziness was accompanied by palpitation, may represent presyncopal episode with episodes of cerebral hypoperfusion. She was given aspirin and was continued on Xarelto and Lipitor. She was given Synthroid 88 mcg. Echocardiogram done showed ejection fraction 65% to 70% and cardiac enzymes were negative. Telemetry strips were likewise negative. She underwent a myocardial perfusion scan and results showed no imaging findings to suggest ischemia. She was eventually cleared for discharge. Advised to follow up with PMD. FINAL DIAGNOSES: 1. Vertigo. 2. Chest pain, atypical. 3. Diabetes mellitus. 4. Hypertension. 5. Prior pulmonary embolism. 6. History of hypercoagulable state. On anticoagulation with Xarelto. 7. Multiple lacunar strokes. 8. Hyperlipidemia. DISPOSITION: The patient was discharged home. DISCHARGE MEDICATIONS: Refer to medication list. FOLLOWUP: The patient was advised to follow up with PMD. Estela Tinoco M.D. I have been assigned to dictate discharge summary on this account and I was not involved in the patient's management. Indy Yun N.P. DR: JILLIAN JOB#: [id number] CC:
== END 2017-03-27 18:00 | disposition home or self-care (01) | DRG 149 ==
LOC: EDBD 19:46 → EMR 20:15 → EDBEDREQ 22:04 → 2E 23:15 → EDBEDREQ 23:20
DX: H81.10 Benign paroxysmal vertigo, unspecified ear (principal); D68.8 Other specified coagulation defects; I24.9 Acute ischemic heart disease, unspecified; I10 Essential (primary) hypertension; E11.9 Type 2 diabetes mellitus without complications; Z88.6 Allergy status to analgesic agent; Z88.8 Allergy status to other drugs, medicaments and biological substances; Z86.73 Personal history of transient ischemic attack (TIA), and cerebral infarction without residual deficits; K58.9 Irritable bowel syndrome, unspecified; Z85.850 Personal history of malignant neoplasm of thyroid; Z79.01 Long term (current) use of anticoagulants; Z79.4 Long term (current) use of insulin; R07.89 Other chest pain
CPT/HCPCS: 36415; 71010; 71275; 78452; 80053; 80061; 81003; 82550; 82553; 82962; 84439; 84443; 84481; 84484; 85025; 85610; 85730; 86140; 93005; 93017; 93306; 94664; 99285; J1815; J2405